=== PATIENT | male | born 1950 | race Caucasian/White ===

== ENCOUNTER 2020-12-30 21:47 | Emergency (ER) | payer SELFPAY ==
[~2020-12-30] VITALS: Ht 172.7 cm; Wt 81.6 kg
--- NOTE | 2020-12-30 22:01 | NUR ---
PT [facility] FROM [facility] FOR ETOH. PLACED IN BED 12 ON MONITOR AND PULSE OX. VSS. NO ACUTE DISTRESS NOTED.
--- NOTE | 2020-12-31 04:39 | NUR ---
REMAINS IN BED, RESTING, VSS.
--- NOTE | 2020-12-31 05:22 | NUR ---
PT ABLE TO AMBULATE WITH ASSISTANCE. UNABLE TO AMBULATE ON HIS OWN. ER MD AWARE. PT PLACED BACK IN BED.
[2020-12-31 07:15] VITALS: BP 131/73
--- NOTE | 2020-12-31 07:15 | NUR ---
Patient discharged to home in stable condition. Written and verbal after care instructions given. Patient verbalizes understanding of instruction.
--- NOTE | 2020-12-31 07:15 | NUR ---
PT [id number]. AMBULATORY WITH STEADY GAIT.
== END 2020-12-31 07:16 | disposition home or self-care (01) ==
LOC: ER 21:53
DX: F10.129 Alcohol abuse with intoxication, unspecified (principal); I10 Essential (primary) hypertension; F31.9 Bipolar disorder, unspecified; F20.9 Schizophrenia, unspecified; Y90.9 Presence of alcohol in blood, level not specified
CPT/HCPCS: 82962-TC